=== PATIENT | male | born 1940 | race Caucasian/White ===

== ENCOUNTER 2019-01-26 06:30 | Outpatient (RCR) | payer MEDICARE, SELFPAY | END 2019-02-16 00:01 | LOC: LAB 06:30 | DX: E11.65 Type 2 diabetes mellitus with hyperglycemia (principal); E78.5 Hyperlipidemia, unspecified; I10 Essential (primary) hypertension; N39.0 Urinary tract infection, site not specified | CPT/HCPCS: 36415; 80061; 83036 ==